=== PATIENT | female | born 1950 | race Caucasian/White ===

== ENCOUNTER 2020-12-01 12:15 | Outpatient (REF) | payer MEDICARE, SELFPAY ==
[2020-12-01 13:19] LABS: Hematocrit 39.5 % (37-47); Mean Corpuscular HGB Conc 32.9 g/dl (31.0-35.0); Mean Corpuscular Hemoglobin 28.7 pg (27.0-33.0); Mean Corpuscular Volume 87.2 fL (80-98); Mean Platelet Volume 9.1 fL (9.4-12.3); Platelet Count 383 X10*3/uL (160-400); Red Blood Count 4.53 X10*6/uL (4.20-5.50); White Blood Count 20.3 X10*3/uL (4.8-10.8)
[2020-12-01 13:55] LABS: SLIDE REVIEW MANUAL DIFF
[2020-12-01 14:17] LABS: Erythrocyte Sedimentation Rate 16 MM/HR (0-20)
[2020-12-01 14:39] LABS: Lymphocytes Absolute Manual 11.4 X10*3/uL (0.6-4.8); Lymphocytes Percent Manual 56 % (20-40); Monocytes Absolute Manual 0.2 X10*3/uL (0.0-1.2); Monocytes Percent Manual 1 % (2-11); Neutrophils Percent Manual 43 % (45-73); Nucleated Red Blood Cells 1 /100WBC (0-0)
[2020-12-01 14:40] LABS: Platelet Estimate NORMAL (NORMAL); Platelet Morphology Comment NORMAL; RBC Morphology NORMAL; Smudge Cells PRESENT
[2020-12-01 14:41] LABS: Band Neutrophils Percent 0 % (3-5); Neutrophils Absolute Manual 8.7 X10*3/uL (2.2-7.9)
== END 2020-12-01 12:16 | disposition home or self-care (01) ==
LOC: HO.LAB 12:15
PROVIDERS: PCP Family Medicine; Visit Provider Psychiatry & Neurology Neurology
DX: M31.6 Other giant cell arteritis (principal)
CPT/HCPCS: 36415; 85007; 85027; 85060; 85652

== ENCOUNTER 2020-12-23 10:55 | Outpatient (REF) | payer MEDICARE, SELFPAY ==
[2020-12-23 11:33] LABS: Hematocrit 39.4 % (37-47); Hemoglobin 13.1 g/dl (12.0-16.0); Mean Corpuscular HGB Conc 33.2 g/dl (31.0-35.0); Mean Corpuscular Volume 87.4 fL (80-98); Mean Platelet Volume 8.1 fL (9.4-12.3); Platelet Count 441 X10*3/uL (160-400); Red Blood Count 4.51 X10*6/uL (4.20-5.50); Red Cell Distribution Width 15.7 % (11.0-16.0)
[2020-12-23 12:28] LABS: Erythrocyte Sedimentation Rate 8 MM/HR (0-20)
== END 2020-12-23 10:56 | disposition home or self-care (01) ==
LOC: HO.LAB 10:55
PROVIDERS: PCP Family Medicine; Visit Provider Psychiatry & Neurology Neurology
DX: M31.6 Other giant cell arteritis (principal)
CPT/HCPCS: 36415; 85027; 85652

== ENCOUNTER 2021-02-11 10:46 | Outpatient (REF) | payer MEDICARE, SELFPAY ==
[2021-02-11 11:28] LABS: Basophils Percent Auto 0.3 % (0-2); Eosinophils Percent Auto 0.4 % (0-4); Hematocrit 41.4 % (37-47); Hemoglobin 13.7 g/dl (12.0-16.0); Imm Gran Abs Auto 0.05 X10*3/uL (0.00-0.03); Imm Gran Pct Auto 0.5 % (0.0-0.4); Lymphocytes Absolute Auto 3.9 X10*3/uL (1.2-4.9); Lymphocytes Percent Auto 40.1 % (20-40); MANUAL DIFF FLAG SCAN; Mean Corpuscular HGB Conc 33.1 g/dl (31.0-35.0); Mean Corpuscular Hemoglobin 28.9 pg (27.0-33.0); Mean Corpuscular Volume 87.3 fL (80-98); Monocytes Absolute Auto 0.4 X10*3/uL (0.1-1.2); Monocytes Percent Auto 4.1 % (2-11); Neutrophils Absolute Auto 5.3 X10*3/uL (2.0-8.3); Neutrophils Percent Auto 54.6 % (45-73); PLT CLUMP 1; Red Blood Count 4.74 X10*6/uL (4.20-5.50); Red Cell Distribution Width 14.3 % (11.0-16.0); SCAN SMEAR FLAG 1
[2021-02-11 12:16] LABS: Platelet Count 456 X10*3/uL (160-400); White Blood Count 9.7 X10*3/uL (4.8-10.8)
[2021-02-11 12:17] LABS: SLIDE REVIEW VERIFIED
[2021-02-11 12:46] LABS: Erythrocyte Sedimentation Rate 13 MM/HR (0-20)
== END 2021-02-11 10:47 | disposition home or self-care (01) ==
LOC: HO.LAB 10:46
PROVIDERS: Visit Provider Psychiatry & Neurology Neurology
DX: M31.6 Other giant cell arteritis (principal)
CPT/HCPCS: 36415; 85025; 85652